=== PATIENT | female | born 1975 | race Caucasian/White ===

== ENCOUNTER 2019-01-24 06:54 | Observation (INO) | payer BC ==
[2019-01-24] MEDS ORDERED: ACETAMINOPHEN 325 MG TAB PO (08:00)
[2019-01-24] MEDS ORDERED: morphine 2 MG INJ IV (08:00)
[2019-01-24] MEDS ORDERED: DOCUSATE SODIUM 100 MG CAP PO (08:00)
[2019-01-24] MEDS ORDERED: NACL 0.9% 3 ML SYG IV (08:00)
[2019-01-24] MEDS ORDERED: BISACODYL (EC) 5 MG TAB PO (08:00)
[2019-01-24 08:56] LABS: ADD MAN DIFF? NO
[2019-01-24 09:00] LABS: BASOPHIL # 0.1 10^3/ul (0.0-0.1); BASOPHILS % 0.5 % (0.0-2.0); EOSINOPHILS # 0.1 10^3/ul (0.0-0.5); EOSINOPHILS % 1.2 % (0.0-7.0); HEMATOCRIT 43.8 % (37.0-47.0); HEMOGLOBIN 14.4 g/dl (12.0-16.0); LYMPHOCYTES # 1.5 10^3/ul (0.8-2.9); LYMPHOCYTES % 13.6 % (15.0-51.0); MEAN CORPUSCULAR HEMOGLOBIN 29.8 pg (29.0-33.0); MEAN CORPUSCULAR HGB CONC 32.9 g/dl (32.0-37.0); MEAN CORPUSCULAR VOLUME 90.5 fl (82.0-101.0); MEAN PLATELET VOLUME 10.1 fl (7.4-10.4); MONOCYTE # 0.7 10^3/ul (0.3-0.9); MONOCYTES % 5.9 % (0.0-11.0); NEUTROPHIL # 8.9 10^3/ul (1.6-7.5); NEUTROPHILS % 78.4 % (39.0-77.0); PLATELET COUNT 387 10^3/UL (140-415); RED BLOOD COUNT 4.84 10^6/ul (4.20-5.40); RED CELL DISTRIBUTION WIDTH 13.4 % (11.5-14.5)
[2019-01-24 09:00] LABS: WHITE BLOOD COUNT 11.3 10^3/ul (4.8-10.8)
[2019-01-24 09:19] LABS: ALANINE AMINOTRANSFERASE 32 IU/L (13-69); ALBUMIN/GLOBULIN RATIO 1.02; ALKALINE PHOSPHATASE 93 IU/L (42-121); ANION GAP 12 (5-13); ASPARTATE AMINO TRANSFERASE 35 IU/L (15-46); BILIRUBIN,INDIRECT 0.4 mg/dl (0-1.1); BILIRUBIN,TOTAL 0.4 mg/dl (0.2-1.3); BLOOD UREA NITROGEN 6 mg/dl (7-20); CALCIUM 9.3 mg/dl (8.4-10.2); CARBON DIOXIDE 27 mmol/L (21-31); CHLORIDE 105 mmol/L (97-110); CREATININE 0.67 mg/dl (0.44-1.00); Estimated GFR > 60 mL/min (>60); GLUCOSE 120 mg/dl (70-220); MAGNESIUM 2.1 mg/dl (1.7-2.5); POTASSIUM 3.7 mmol/L (3.5-5.1); SODIUM 144 mmol/L (135-144); TOTAL PROTEIN 7.9 g/dl (6.1-8.1)
[2019-01-24 09:30] LABS: HEMOGLOBIN A1C 5.2 % (0-5.9)
[2019-01-24 09:48] LABS: THYROID STIMULATING HORMONE 0.685 MIU/L (0.465-4.680)
[2019-01-24] MEDS: SOD CHLORIDE 0.9% 1,000 ML IV ×2 (09:56→20:58)
[2019-01-24] MEDS: PIPER-TAZO 3.375 GM IV (PMX) 100 ML IVPB ×4 (09:56→23:56)
[2019-01-24 10:30] LABS: CHOL/HDL RATIO 3.4 RATIO; CHOLESTEROL 144 mg/dl (100-200); HDL CHOLESTEROL 42 mg/dl (34-88); LDL CHOLESTEROL,CALCULATED 73 mg/dl; TRIGLYCERIDES 147 mg/dl (0-149)
[2019-01-24] MEDS: POLYETHYLENE GLYCOL 17 GM PACKET PO (11:30)
[2019-01-24] MEDS: DOCUSATE SODIUM 250 MG CAP PO (11:30)
[2019-01-24 13:59] LABS: ADD MAN DIFF? NO
[2019-01-24 14:00] LABS: BASOPHIL # 0.1 10^3/ul (0.0-0.1); BASOPHILS % 0.5 % (0.0-2.0); EOSINOPHILS # 0.1 10^3/ul (0.0-0.5); EOSINOPHILS % 1.1 % (0.0-7.0); HEMATOCRIT 42.7 % (37.0-47.0); HEMOGLOBIN 14.1 g/dl (12.0-16.0); LYMPHOCYTES # 1.5 10^3/ul (0.8-2.9); LYMPHOCYTES % 14.5 % (15.0-51.0); MEAN CORPUSCULAR HEMOGLOBIN 30.2 pg (29.0-33.0); MEAN CORPUSCULAR VOLUME 91.4 fl (82.0-101.0); MEAN PLATELET VOLUME 9.5 fl (7.4-10.4); MONOCYTE # 0.7 10^3/ul (0.3-0.9); MONOCYTES % 6.5 % (0.0-11.0); NEUTROPHILS % 76.9 % (39.0-77.0); PLATELET COUNT 390 10^3/UL (140-415); RED BLOOD COUNT 4.67 10^6/ul (4.20-5.40); RED CELL DISTRIBUTION WIDTH 13.3 % (11.5-14.5)
[2019-01-24 14:00] LABS: WHITE BLOOD COUNT 10.4 10^3/ul (4.8-10.8)
[2019-01-24] MEDS: BISACODYL (EC) 5 MG TAB PO (16:00)
[2019-01-24 16:46] LABS: OCCULT BLOOD STOOL NEGATIVE (NEGATIVE)
[2019-01-24] MEDS: ONDANSETRON 4 MG INJ IV (17:19)
[2019-01-24] MEDS: MAGNESIUM CITRATE 300 ML BTL PO (17:20)
[2019-01-24] MEDS: POLYETHYLENE GLYCOL 3350 119 GM POWDER PO (18:17)
[2019-01-24 19:59] LABS: ADD MAN DIFF? NO
[2019-01-24 20:01] LABS: WHITE BLOOD COUNT 11.4 10^3/ul (4.8-10.8)
[2019-01-24 20:01] LABS: BASOPHIL # 0.1 10^3/ul (0.0-0.1); BASOPHILS % 0.5 % (0.0-2.0); EOSINOPHILS # 0.2 10^3/ul (0.0-0.5); EOSINOPHILS % 1.7 % (0.0-7.0); HEMATOCRIT 42.1 % (37.0-47.0); HEMOGLOBIN 13.9 g/dl (12.0-16.0); LYMPHOCYTES # 1.6 10^3/ul (0.8-2.9); LYMPHOCYTES % 13.7 % (15.0-51.0); MEAN CORPUSCULAR HEMOGLOBIN 30.2 pg (29.0-33.0); MEAN CORPUSCULAR VOLUME 91.5 fl (82.0-101.0); MEAN PLATELET VOLUME 9.5 fl (7.4-10.4); MONOCYTE # 0.7 10^3/ul (0.3-0.9); MONOCYTES % 6.1 % (0.0-11.0); NEUTROPHIL # 8.9 10^3/ul (1.6-7.5); NEUTROPHILS % 77.6 % (39.0-77.0); PLATELET COUNT 393 10^3/UL (140-415); RED CELL DISTRIBUTION WIDTH 13.4 % (11.5-14.5)
[2019-01-25] MEDS: PIPER-TAZO 3.375 GM IV (PMX) 100 ML IVPB ×3 (05:57→17:40)
[2019-01-25] MEDS: POLYETHYLENE GLYCOL 3350 119 GM POWDER PO (05:57)
[2019-01-25] MEDS: SOD CHLORIDE 0.9% 1,000 ML IV (05:58)
[2019-01-25 06:02] LABS: INR 0.98; PROTIME 13.1 Sec (11.9-14.9)
[2019-01-25 06:03] LABS: PARTIAL THROMBOPLASTIN TIME 25.1 Sec (23.0-35.0)
[2019-01-25 06:24] LABS: FREE T4 (FREE THYROXINE) 1.61 ng/dl (0.64-1.79)
[2019-01-25 06:30] LABS: ANION GAP 11 (5-13); BLOOD UREA NITROGEN 8 mg/dl (7-20); CALCIUM 9.1 mg/dl (8.4-10.2); CARBON DIOXIDE 26 mmol/L (21-31); CHLORIDE 107 mmol/L (97-110); CREATININE 0.82 mg/dl (0.44-1.00); Estimated GFR > 60 mL/min (>60); GLUCOSE 96 mg/dl (70-220); MAGNESIUM 2.3 mg/dl (1.7-2.5); POTASSIUM 3.9 mmol/L (3.5-5.1); SODIUM 144 mmol/L (135-144)
[2019-01-25 06:41] LABS: THYROID STIMULATING HORMONE 0.976 MIU/L (0.465-4.680)
[2019-01-25] MEDS: BISACODYL (EC) 5 MG TAB PO (08:26)
[2019-01-25] MEDS: DOCUSATE SODIUM 250 MG CAP PO (08:26)
[2019-01-25] MEDS: POLYETHYLENE GLYCOL 17 GM PACKET PO (08:27)
[2019-01-25] MEDS: ONDANSETRON 4 MG INJ IV (09:55)
[2019-01-25] MEDS ORDERED: MIDAZOLAM 1 MG/ML 2 ML INJ (16:11)
[2019-01-25] MEDS ORDERED: PROPOFOL 40 ML (16:11)
[2019-01-25] MEDS ORDERED: LIDOCAINE 2% (SDV) 5 ML INJ (16:11)
[2019-01-25] MEDS ORDERED: PROPOFOL 20 ML (16:29)
[2019-01-25] MEDS ORDERED: ONDANSETRON 4 MG INJ IV (16:30)
== END 2019-01-25 20:35 | disposition home or self-care (01) ==
LOC: 6WM 06:54
PROVIDERS: Family Medicine
DX: K52.9 Noninfective gastroenteritis and colitis, unspecified (principal); K57.30 Diverticulosis of large intestine without perforation or abscess without bleeding; N85.9 Noninflammatory disorder of uterus, unspecified; F41.9 Anxiety disorder, unspecified
CPT/HCPCS: 45380; 74176; 80048; 80053; 80061; 82270; 83036; 83735; 84439; 84443; 84703; 85025; 85610; 85730; 87081; 88305; 99217